=== PATIENT | female | born 2000 | race Two or more races ===

== ENCOUNTER → 2024-05-29 | Day surgery (SDC) | payer OTHER | END | disposition home or self-care (01) | LOC: JRADIR 03:41 | PROVIDERS: ATTEND Nurse Practitioner Family | PROC: BQ30YZZ Magnetic Resonance Imaging (MRI) of Right Hip using Other Contrast (ICD-10-PCS; principal; 2024-05-29) | DX: M25.551 Pain in right hip (principal) | CPT/HCPCS: 27093; 73525-TC-FY; 73722-TC; 77002-TC-FY; 84703 ==

== ENCOUNTER → 2024-06-18 | Day surgery (SDC) | payer OTHER | END | disposition home or self-care (01) | LOC: JRADIR 10:33 | PROVIDERS: ATTEND Nurse Practitioner Family | PROC: BQ31Y0Z Magnetic Resonance Imaging (MRI) of Left Hip using Other Contrast, Unenhanced and Enhanced (ICD-10-PCS; principal; 2024-06-18) | PROC: BQ31Y0Z Magnetic Resonance Imaging (MRI) of Left Hip using Other Contrast, Unenhanced and Enhanced (ICD-10-PCS; 2024-06-18) | DX: M25.552 Pain in left hip (principal) | CPT/HCPCS: 27093; 73525-TC-FY; 73722-TC; 77002-TC-FY; 84703 ==